=== PATIENT | female | born 1990 | race Asian ===

== ENCOUNTER 2018-07-01 19:03 | Inpatient (IN) | payer OTHER ==
[2018-07-01] MEDS ORDERED: Nalbuphine* 10 MG/ML 1 ML VIAL IV ONE (20:47)
[2018-07-01] MEDS ORDERED: Dinoprostone* 10 MG VAG.SUPP VAGINAL ONE (20:47)
[2018-07-01] MEDS ORDERED: Promethazine INJ(RESTRICTED)* 25 MG/ML 1 ML VIAL IV ONE (20:47)
[2018-07-01] MEDS ORDERED: Buffered Lidocaine 1% SYRIN* 1 ML/SYRINGE INTRADERM ONE (20:47)
[2018-07-01] MEDS ORDERED: Lactated Ringers 1000 ML Bag* 1,000 ML IV ONE (20:47)
--- NOTE | 2018-07-01 20:56 | HP ---
General Information - Reason for Visit , IUP@41+1, +SROM, induction of labor - General Information Maternal Age: 28 Grav: 2 Para: 1 SAB: 0 IEA: 0 Estimated Due Date: 06/23/18 Determined By: Early Ultrasound Gestational Age in Weeks/Days: 41+1 Maternal Blood Type and Rh: A Positive - Results this Serology/RPR Result: Non-Reactive Rubella Result: Immune HBsAg Result: Negative HIV Result: Negative GBS Culture Result: Negative Past Medical History Delivery History: Hx Uncomplicated Vaginal Delivery, See Records Delivery History Comment: Pt was induced at 39 weeks for suspected IUGR Pertinent Past Medical History: Non-Contributory Past Medical History Comment: None Pertinent Past Surgical History: None Pertinent Family History: Non-Contributory - Antepartal Records Antepartal Records: Reviewed, Uncomplicated Review of Systems CV Complaint: No Respiratory: Shortness of Breath: No Gastrointestinal: No Nausea/Vomiting, Normal Bowel Movement Genitourinary: No Dysuria, No Bleeding Musculoskeletal: Contractions Neurological: No Headache, No Visual Changes Movement: Normal Exam Allergies/Adverse Reactions: Allergies No Known Allergies Allergy (Verified 07/01/18 19:39) Vital Signs 07/01/18 19:10 Temperature 98.0 F Pulse Rate 88 Respiratory 16 Rate Blood Pressure 112/69 (mmHg) O2 Sat by Pulse 98 Oximetry Lab Values - Entire Visit: Laboratory Tests 07/01/18 19:30 Vag Amniotic Fld Detect Positive - Measurements Height: 5 ft 2 in Weight: 149 lb Weight in lbs: 149.690967 Body Mass Index (BMI): 27.2 Pre- Weight: 111 lb Weight Gained This : 38 lbs and 0 ozs - Exam Breast: Breast Exam Deferred CVA: No CVA Tenderness Extremities: No Edema Heart: Normal Rhythm/Heart Sounds HEENT: No Significant Findings Lungs: Clear Bilaterally Rectal: Rectal Exam Deferred Reflexes: DTR 2+ Thyroid: No Thyromegaly - Abdominal Exam Abdomen Exam: Non-Tender, Fundal Height Consistent with Dates - Ultrasound/Biophysical Profile Ultrasound Status: Not Done Targeted Exam Findings Estimated Weight: 7.5-8 Cervical Exam: 1cm, 2cm Effacement: <50% Station: -1 Presenting Part: Vertex Membrane Status: SROM Amniotic Fluid Evaluation: Positive ROM Plus Bleeding/Discharge: None EFM Findings - External Monitor Findings Baseline Heart Rate: 135 External Monitor Findings: Accelerations Present, No Pattern of Variable or Late Decelerations, Variability Moderate, Baseline Stable Contractions: Irregular, Mild - q10 minutes Assessment/Plan - Assessment 28yo, , IUP@41+1 here for IOL d/t SROM and postdates GBS negative No evidence of acidemia Mild, irregular contractions - good resting tone 1.5/30/-1, medium, mid, vtx = Ly score of 5 SROM, clear fluid - Obstetrical Risk Factors Obstetrical Risk Factors: Post-Dates - Plan Plan: Induction, Cervical Ripening, Admit - Anticipate Vaginal Delivery Plan Comment: Plan: Discussed risk vs benefits for expectant management vs. IOL following SROM. PT and family opt for IOL. Given Ly score of 5, recommend cervical ripening overnight. Discussed risks vs. benefits of Cervidil. Pt and in agreement with plan Epidural PRN Anticipate progression to - Date/Time of Admission Date of Admission: 07/01/18 Time of Admission: 21:00
[2018-07-01] MEDS ORDERED: Lactated Ringers 1000 ML Bag* 1,000 ML IV SCH ×2 (21:00→23:45)
[2018-07-02] MEDS ORDERED: Bupivacaine 0.5% SDV PF* 30ML VIAL ONE (00:21)
[2018-07-02] MEDS ORDERED: ROPIVACAINE 5 MG/ML 30 ML BTL (0.5%) ONE (00:23)
[2018-07-02] MEDS ORDERED: fentaNYL* 50 MCG/ML 2 ML VIAL (100 MCG VIAL) ONE (00:34)
[2018-07-02 00:36] LABS: ABS Basophils 0 10^3/ul (0-0.2); ABS Eosinophils 0 10^3/ul (0-0.6); ABS Lymphocytes 1.8 10^3/ul (1.0-4.8); ABS Monocytes 0.8 10^3/ul (0-0.8); ABS Neutrophils 6.7 10^3/ul (1.5-7.7); ABS Nucleated RBC 0 10^3/ul; Eosinophil % 0.3 %; Hematocrit 42 % (35-47); Hemoglobin 14.8 g/dl (12.0-16.0); Lymphocyte % 18.9 %; Mean Corpuscular HGB Conc 36 g/dl (31-36); Mean Corpuscular Hemoglobin 34 pg (27-31); Mean Corpuscular Volume 95 fL (80-97); Mean Platelet Volume 9.4 fL (7.4-10.4); Nucleated Red Blood Cells % 0.1; Platelet Count 167 10^3/ul (150-450); Red Blood Count 4.38 10^6/ul (4.00-5.40); Red Cell Distribution Width 13 % (10.5-15); White Blood Count 9.4 10^3/ul (3.5-10.8)
[2018-07-02] MEDS ORDERED: OBEPIDURAL* 250 ML EPIDURAL ONE (00:38)
[2018-07-02] MEDS ORDERED: Famotidine TAB* 20 MG PO PRN (01:01)
[2018-07-02] MEDS ORDERED: Phenylephrine IV* 40 MCG/ML 10 ML SYRINGE IV PUSH PRN (01:01)
[2018-07-02] MEDS ORDERED: Lactated Ringers 1000 ML Bag* 1,000 ML IV ONE (01:01)
[2018-07-02] MEDS ORDERED: Sodium Citrate/Citric Acid* 15 ML UDC PO PRN (01:01)
[2018-07-02] MEDS ORDERED: EPHEDrine (Pressors)* 50 MG/ML VIAL IV PUSH PRN (01:01)
[2018-07-02] MEDS ORDERED: Lactated Ringers 1000 ML Bag* 1,000 ML IV SCH ×2 (02:00→04:00)
[2018-07-02] MEDS ORDERED: OBEPIDURAL* 250 ML EPIDURAL SCH (02:00)
[2018-07-02] MEDS ORDERED: Oxytocin in LR* 20 UNITS/1,000 ML BAG IVPB ONE (02:49)
[2018-07-02] MEDS ORDERED: Dibucaine 1% 28.35 GM TUBE PR PRN (03:09)
[2018-07-02] MEDS ORDERED: Acetaminophen TAB* 325 MG PO PRN (03:09)
[2018-07-02] MEDS ORDERED: Ibuprofen TAB* 600 MG PO PRN (03:09)
[2018-07-02] MEDS ORDERED: Witch Hazel PAD* JAR TOPICAL PRN (03:09)
[2018-07-02] MEDS ORDERED: Glycerin ADULT SUPP PR PRN (03:09)
--- NOTE | 2018-07-02 03:21 | PN ---
Progress Note - Progress Note Date of Service: 07/02/18 Note: Notified by RN of tachysystole Cervidil pulled No evidence of acidemia VE: /-1, vtx Pt requesting epidural Anesthesia aware
--- NOTE | 2018-07-02 03:22 | PROCNOTE ---
[facility]: Delivery Note - Nursery Level of Nursery: Regular/Bedside - Perineum Perineal Injury: 2nd Degree Perineal Injury Comment: repair with 3-0 rapide and vicryl Perineal Repair: By Delivering Practioner - Events Delivery Events of Note: Other - deep variable decelerations with pushing / tight nuchal cord x1 - Risk for Falls Delivered OB Patient- Risk for Falls: Heavy Bleeding Fall Risk: Patient is at High Risk for Falls
--- NOTE | 2018-07-02 03:27 | PN ---
Progress Note - Progress Note Date of Service: 07/02/18 Note: CNM notified of decelerations with nadar of 55, with recovery into 115-120 Fluids infusing, O2 applied, pt in left lateral, Dr. Lemus notified Rapid cervical change from 7cm to complete Start pushing
[2018-07-02] MEDS ORDERED: Lidocaine 1% INJ* 10 MG/ML 30 ML SDV ONE (03:30)
[2018-07-02] MEDS ORDERED: Lidocaine 1%* 5 ML VIAL ONE (03:30)
[2018-07-02] MEDS ORDERED: Oxytocin in LR* 20 UNITS/1,000 ML BAG IVPB SCH (04:00)
[2018-07-02] MEDS ORDERED: Carboprost Tromethamine* 250 MCG INJ ONE (04:50)
[2018-07-02] MEDS ORDERED: Misoprostol TAB* 200 MCG ONE (04:52)
--- NOTE | 2018-07-02 05:02 | PN ---
Progress Note - Progress Note Date of Service: 07/02/18 Note: Notified by RN of continued bleeding On evaluation fundus firm 800mcg of cytotec given VSS
[2018-07-02] MEDS ORDERED: Misoprostol TAB* 200 MCG PR ONE (05:08)
--- NOTE | 2018-07-02 05:08 | PN ---
Progress Note - Progress Note Date of Service: 07/02/18 Note: RN notified CNM of additional gush of bleeding Dr. Lemus notified VSS IV fluids and Pitocin infusing Hemabate, 250mcg, given
[2018-07-02] MEDS ORDERED: Carboprost Tromethamine* 250 MCG INJ IM ONE (05:10)
[2018-07-02 05:45] LABS: ABS Basophils 0 10^3/ul (0-0.2); ABS Eosinophils 0 10^3/ul (0-0.6); ABS Lymphocytes 1.2 10^3/ul (1.0-4.8); ABS Monocytes 1.2 10^3/ul (0-0.8); ABS Neutrophils 14.7 10^3/ul (1.5-7.7); ABS Nucleated RBC 0 10^3/ul; Eosinophil % 0.1 %; Hematocrit 35 % (35-47); Lymphocyte % 7.1 %; Mean Corpuscular HGB Conc 35 g/dl (31-36); Mean Corpuscular Hemoglobin 33 pg (27-31); Mean Corpuscular Volume 95 fL (80-97); Mean Platelet Volume 9.4 fL (7.4-10.4); Nucleated Red Blood Cells % 0; Platelet Count 141 10^3/ul (150-450); Red Blood Count 3.65 10^6/ul (4.00-5.40); Red Cell Distribution Width 13 % (10.5-15); White Blood Count 17.2 10^3/ul (3.5-10.8)
[2018-07-02] MEDS ORDERED: Simethicone TAB* 80 MG TAB.CHEW PO SCH (08:30)
[2018-07-02] MEDS: Docusate CAP* 100 MG PO SCH ×3 (09:10→21:06)
[2018-07-02] MEDS ORDERED: Ammonia Inhalant* 1 EA AMP ONE (17:58)
[2018-07-03 08:05] LABS: ABS Basophils 0 10^3/ul (0-0.2); ABS Eosinophils 0.1 10^3/ul (0-0.6); ABS Lymphocytes 1.6 10^3/ul (1.0-4.8); ABS Monocytes 0.8 10^3/ul (0-0.8); ABS Neutrophils 8.3 10^3/ul (1.5-7.7); ABS Nucleated RBC 0 10^3/ul; Eosinophil % 0.5 %; Hematocrit 32 % (35-47); Hemoglobin 10.9 g/dl (12.0-16.0); Lymphocyte % 15.1 %; Mean Corpuscular HGB Conc 34 g/dl (31-36); Mean Corpuscular Hemoglobin 33 pg (27-31); Mean Corpuscular Volume 95 fL (80-97); Mean Platelet Volume 8.7 fL (7.4-10.4); Nucleated Red Blood Cells % 0; Platelet Count 136 10^3/ul (150-450); Red Blood Count 3.34 10^6/ul (4.00-5.40); Red Cell Distribution Width 13 % (10.5-15); White Blood Count 10.8 10^3/ul (3.5-10.8)
[2018-07-03] MEDS: Docusate CAP* 100 MG PO SCH ×3 (08:27→21:09)
[2018-07-03] MEDS ORDERED: Ferrous Gluconate TAB* 324 MG TAB PO SCH (09:00)
[2018-07-04] MEDS: Docusate CAP* 100 MG PO SCH (09:39)
[2018-07-04 09:46] VITALS: BP 114/72
== END 2018-07-04 11:51 | disposition home or self-care (01) | DRG 806 ==
LOC: MCHOBOUT 19:03 → MCHOB 20:42
PROVIDERS: ADMIT Advanced Practice Midwife; ATTEND Obstetrics & Gynecology
PROC: 10E0XZZ Delivery of Products of Conception, External Approach (ICD-10-PCS; principal; 2018-07-02)
PROC: 0KQM0ZZ Repair Perineum Muscle, Open Approach (ICD-10-PCS; 2018-07-02)
PROC: 3E033VJ Introduction of Other Hormone into Peripheral Vein, Percutaneous Approach (ICD-10-PCS; 2018-07-02)
DX: O48.0 Post-term pregnancy (principal); O72.1 Other immediate postpartum hemorrhage; Z37.0 Single live birth; Z3A.41 41 weeks gestation of pregnancy; O70.1 Second degree perineal laceration during delivery; O69.81X0 Labor and delivery complicated by cord around neck, without compression, not applicable or unspecified
CPT/HCPCS: 36415; 84112; 85025; 86850; 86900; 86901; A9270-GY; J2795; J3010